=== PATIENT | male | born 1980 | race American Indian/Alaskan Native ===

== ENCOUNTER 2018-07-21 15:30 | Emergency (ER) | payer OTHER ==
[2018-07-21 15:50] VITALS: BP 141/74
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
== END 2018-07-21 18:27 | disposition home or self-care (01) ==
LOC: ED 15:30
DX: M25.511 Pain in right shoulder (principal); V49.49XA Driver injured in collision with other motor vehicles in traffic accident, initial encounter; Y93.89 Activity, other specified; Y92.89 Other specified places as the place of occurrence of the external cause; Y99.8 Other external cause status